=== PATIENT | female | born 1945 ===

== ENCOUNTER 2017-07-09 11:21 | Emergency (ER) | payer MEDICARE ==
--- NOTE | 2017-07-09 15:36 | RAD ---
Indication: Left leg edema. Duplex Doppler sonography of the deep venous system of the left lower extremity deep venous system was performed. Bilaterally the common femoral veins appear patent and compressible. Left proximal greater saphenous vein, proximal deep femoral vein, femoral vein, popliteal vein, posterior tibial veins and peroneal veins appear patent and compressible. Small lymph nodes are noted in the left renal region. IMPRESSION: NO EVIDENCE OF DEEP VENOUS THROMBOSIS IS IDENTIFIED.
[2017-07-09] MEDS ORDERED: Sulfamethox/Trimethoprim DS 800/160* TAB PO ONE (15:45)
[2017-07-09 16:06] VITALS: BP 164/83
--- NOTE | 2017-07-09 18:49 | ED ---
Joshua Alatorre SooYoung, scribed for Danny Frye MD on 07/09/17 at 1445 . Lower Extremity - HPI Summary HPI Summary: A 71 y/o F presents to ED referred by her doctor to r/o DVT. Pt fell approx. one month ago and injured her LLE. She had an XR and there was no fracture. Current sx: L foot swelling. Denies SOB. Pt has a sick mother at home, and wants to get back to her [place]. - History of Current Complaint Chief Complaint: EDSoftTissueLowExtr Stated Complaint: LEFT FOOT PAIN Time Seen by Provider: 07/09/17 13:45 Hx Obtained From: Patient Mechanism Of Injury: Fall From A Standing Position Onset/Duration: Still Present Severity Initially: Moderate Severity Currently: Moderate Pain Intensity: 5 Pain Scale Used: 0-10 Numeric Timing: Constant Location: Is Discrete @ - L foot Associated Signs And Symptoms: Positive: Swelling. Negative: Other - neg: SOB - Allergies/Home Medications Allergies/Adverse Reactions: Allergies Allergy/AdvReac Type Severity Reaction Status Date / Time No Known Allergies Allergy Verified 07/09/17 14:52 PMH/Surg Hx/FS Hx/Imm Hx Previously Healthy: No Endocrine/Hematology History: Reports: Hx Thyroid Disease Psychiatric History: Reports: Hx Anxiety Infectious Disease History: No Infectious Disease History: Denies: Traveled Outside the [place] in Last 30 Days - Social History Occupation: Unemployed - HOMEMAKER Lives: With Family Alcohol Use: None Hx Substance Use: No Substance Use Type: Reports: None Hx Tobacco Use: No Smoking Status (MU): Never Smoked Tobacco Review of Systems Negative: Shortness Of Breath Positive: Edema - L foot All Other Systems Reviewed And Are Negative: Yes Physical Exam - Summary Physical Exam Summary: VITAL SIGNS: Reviewed. GENERAL: Patient is a well-developed and nourished FEMALE who is lying comfortable in the stretcher. Patient is not in any acute respiratory distress. HEAD AND FACE: No signs of trauma. No ecchymosis, hematomas or skull depressions. No sinus tenderness. EYES: PERRLA, EOMI x 2, No injected conjunctiva, no nystagmus. EARS: Hearing grossly intact. Ear canals and tympanic membranes are within normal limits. MOUTH: Oropharynx within normal limits. NECK: Supple, trachea is midline, no adenopathy, no JVD, no carotid bruit, no c- spine tenderness, neck with full ROM. CHEST: Symmetric, no tenderness at palpation LUNGS: Clear to auscultation bilaterally. No wheezing or crackles. CVS: Regular rate and rhythm, S1 and S2 present, no murmurs or gallops appreciated. ABDOMEN: Soft, non-tender. No signs of distention. No rebound, no guarding, and no masses palpated. Bowel sounds are normal. EXTREMITIES: FROM in all major joints, no cyanosis or clubbing. Swelling and erythema to dorsal aspect of L foot. No calf pain. NEURO: Alert and oriented x 3. No acute neurological deficits. Speech is normal and follows commands. SKIN: Dry and warm Triage Information Reviewed: Yes Vital Signs On Initial Exam: Initial Vitals Temp Pulse Resp BP Pulse Ox 97.7 F 72 15 134/62 98 07/09/17 11:29 07/09/17 11:29 07/09/17 11:29 07/09/17 11:29 07/09/17 11:29 Vital Signs Reviewed: Yes Diagnostics - Vital Signs Vital Signs Temp Pulse Resp BP Pulse Ox 07/09/17 14:00 79 159/77 99 07/09/17 13:59 75 98 07/09/17 13:56 154/72 07/09/17 11:29 97.7 F 72 15 134/62 98 - Laboratory Lab Statement: Any lab studies that have been ordered have been reviewed, and results considered in the medical decision making process. - Ultrasound No standard instances Ultrasound Interpretation: No Acute Changes - LOWER EXT VENOUS U/S impression: No evidence of DVT is identified. ED physician has reviewed this radiology report and agrees Ultrasound Interpretation Completed By: Radiologist Lower Extremity Course/Dx - Course Course Of Treatment: A 71 y/o F presents to ED referred by her doctor to r/o DVT. Pt fell approx. one month ago and injured her LLE. She had an XR and there was no fracture. Current sx: L foot swelling. Denies SOB. Pt has a sick mother at home, and wants to get back to her [place]. U/S of LLE is negative for DVT. Pt has erythematous cellulitis. Pt will be placed on Bactrim. D/C home to f/u with PCP. I did not do any blodowork, because pt had nml blodwork with PCP. Hemodynamically stable, A&Ox3. - Diagnoses Differential Diagnosis/HQI/PQRI: Positive: Bursitis, Cellulitis, DVT, Gout, Sprain, Strain Provider Diagnoses: Cellulitis Discharge - Discharge Plan Condition: Stable Disposition: HOME Prescriptions: Sulfamethox/Trimethoprim DS* [Bactrim DS 800/160 TAB*] 1 tab PO BID #10 tab Patient Education Materials: Cellulitis (ED), Sulfamethoxazole/Trimethoprim ( By mouth) Referrals: Mart Thompson MD [Primary Care Provider] - 3 Days Additional Instructions: Follow up with your primary care provider in 3 days. Please return to the ED if you experience new or worsening symptoms. The documentation as recorded by the Joshua connor SooYoung accurately reflects the service I personally performed and the decisions made by , Danny Frye MD.
== END 2017-07-09 16:05 | disposition home or self-care (01) ==
LOC: ED 11:21
DX: L03.90 Cellulitis, unspecified (principal); M79.672 Pain in left foot
CPT/HCPCS: 99283; A9270-GY

== ENCOUNTER 2019-07-31 13:27 | Inpatient (IN) | payer MEDICARE ==
[2019-07-31 14:22] LABS: ABS Basophils 0.1 10^3/ul (0-0.2); ABS Lymphocytes 1.5 10^3/ul (1.0-4.8); ABS Monocytes 0.5 10^3/ul (0-0.8); ABS Neutrophils 9.3 10^3/ul (1.5-7.7); Eosinophil % 0.3 %; Hematocrit 34 % (35-47); Hemoglobin 11.1 g/dL (12.0-16.0); Lymphocyte % 13.2 %; Mean Corpuscular HGB Conc 33 g/dL (31-36); Mean Corpuscular Hemoglobin 27 pg (27-31); Mean Corpuscular Volume 82 fL (80-97); Platelet Count 289 10^3/uL (150-450); Red Blood Count 4.11 10^6 /uL (3.70-4.87); Red Cell Distribution Width 16 % (10-15); White Blood Count 11.4 10^3/uL (3.5-10.8)
--- OUTSIDE RECORDS SUMMARY | 2019-07-31 14:29 | XMS REPORT | Continuity of Care Document ---
:1945 External Reference #:[id number] Author Name Janae Begum NP Address [address] [place] [address] Problems Active Problems Provider Date Hypothyroidism Berta Segovia Onset: 02/10/2015 Malaise and fatigue Mart Thompson M.D. Onset: 01/11/2014 Hyperlipidemia Mart Thompson M.D. Onset: 01/11/2014 Acute maxillary sinusitis Mart Thompson M.D. Onset: 08/11/2012 Anxiety state Mart Thompson M.D. Onset: 02/08/2012 Social History Type Date Description Comments Sex Unknown Tobacco Use Start: Unknown Nonsmoker Tobacco Use Start: Unknown Nonsmoker Smoking Status Reviewed: 06/23/19 Nonsmoker Allergies, Adverse Reactions, Alerts Description No Known Drug Allergies Medications Active Medications SIG Qnty Indications Ordering Provider Date Sharonlisandra Rangel take 1-2 tablets 30caps Z23 Janae Martin 06/23/2019 100mg every 8 hours as Begum, STAFF DEVELOPMENT MANAGER Capsules needed for cough Amoxicillin 1 by mouth three 30tabs J01.90 Janae Martin 06/23/2019 500mg Tablets times a day Begum, STAFF DEVELOPMENT MANAGER Diclofenac Sodium apply to painful 100gm Mart Whitman 04/22/2019 1% Gel area 3 times a Anya Thompson day as needed (joints & muscles) 1 gram, measure with dose card in box Levothyroxine Sodium Take 1 Tablet By 30tabs Mart Ibarra 02/10/2015 Mouth Every Day MD Ada 25mcg Tablets Calcium/Vitamin D 3 po qd Unknown 500/200 Tablets Centrum Silver Ultra 1 po qd Unknown Womens Tablets Asprin 1 po qd Unknown 81mg Claritin 1 by mouth every Unknown 10mg Tablets day History Medications Voltaren apply to painful 100units Mart Thompson, 04/21/2019 - 1% Gel area 3 times a day M.D. 04/22/2019 as needed (joints & muscles) 1 gram, measure with dose card in box Immunizations CPT Code Status Date Vaccine Lot # [id number] Given 07/31/2017 Pneumococcal Conjugate Vacc-13 [id number] Given 07/31/2017 High-Dose, Influenza Virus Vacccine-fluzone 65 and [id number] older 72061 Given 10/09/2014 DO Not Use Split Influenza Virus Vaccine [id number] Given 07/23/2013 DO Not Use Split Influenza Virus Vaccine [id number] 68810 Given 07/28/2008 DO Not Use Split Influenza Virus Vaccine [id number] Given 07/26/2007 DO Not Use Split Influenza Virus Vaccine [id number] Vital Signs Date Vital Result Comment 06/23/2019 2:45pm BP Systolic 140 mmHg BP Diastolic 80 mmHg Heart Rate 80 /min Body Temperature 97.3 F Respiratory Rate 16 /min O2 % BldC Oximetry 95 % room air Height 60 inches 5'0" Weight 182.00 lb BMI (Body Mass Index) 35.5 kg/m2 04/21/2019 9:50am BP Systolic 120 mmHg BP Diastolic 80 mmHg Heart Rate 78 /min Body Temperature 97.9 F Respiratory Rate 16 /min Height 60 inches 5'0" Weight 181.00 lb BMI (Body Mass Index) 35.3 kg/m2 Results Test Date Facility Test Result H/L Range Note Laboratory test 04/21/2019 Nam Wilkerson([facility]) TSH 4.27 mIU/L 0.50-6.00 finding Free T4 1.35 ng/dL 0.75-1.54 Lipid Profile 04/21/2019 Nam Wilkerson([facility]) Cholesterol 202 mg/dL High 120-200 Triglycerides 99 mg/dL 30-200 HDL Cholesterol 71 mg/dL 30-85 LDL (Calculated) 111 CALC 0-129 VLDL Cholesterol 20 mg/dL 0-50 HDL Risk Factor 2.8 CALC 0.0-4.4 Comprehensive Metabolic 04/21/2019 Nam Wilkerson([facility]) Sodium 141 mEq/L 134-149 Prof Potassium 4.2 mEq/L 3.6-5.5 Chloride 100 mEq/L 94-112 Carbon Dioxide 24 mEq/L 21-32 Glucose 99 mg/dL 70-105 BUN 14 mg/dL 6-26 Creatinine 0.7 mg/dL 0.6-1.4 BUN/Creat Ratio 20.0 CALC 8.0-36.0 Calcium 9.1 mg/dL 8.6-10.2 Total Protein 7.2 g/dL 6.4-8.3 Albumin 4.4 g/dL 3.8-5.5 Globulin 2.8 g/dL 2.0-4.8 A/G Ratio 1.6 CALC 0.6-2.3 Alk. Phosphatase 85 U/L 30-110 Alt (SGPT) 21 U/L 7-35 Ast (Sgot) 20 U/L 5-34 Total Bilirubin 0.7 mg/dL 0.2-1.3 GFR Non- >60 ml/min/1.73m^ >=60 GFR >60 ml/min/1.73m^ >=60 CBC Electronic a 04/21/2019 Browning Rhea([facility]) WBC 8.6 x10^3/UL 4.0- 10.0 RBC 4.88 x10^6/UL 3.93-6.00 HGB 13.2 g/dL 12.0-17.0 HCT 41 % 35-50 MCV 84.0 fL 80.0-95.0 MCH 27.0 pg 25.6-32.2 MCHC 32.2 g/dL 32.2-36.0 RDW-CV 15.3 % High 11.6-14.4 PLT 276 x10^3/UL 163-400 MPV 12.3 fL 9.4-12.4 Tasha# 5.37 x10^3/UL 1.56-6.13 Lymph# 2.45 x10^3/UL 1.18-3.74 [place]# 0.62 x10^3/UL 0.24-0.82 Eos # 0.1 x10^3/UL 0.0-0.5 Baso # 0.07 x10^3/UL 0.01-0.08 Tasha% 62.4 % 34.0-70.0 Lymph % 28.5 % 20.0-52.0 [place]% 7.2 % 5.0-12.0 Eos% 1.0 % 0.7-7.0 Baso% 0.8 % 0.1-1.2 Procedures Date Code Description Status 02/05/2008 [id number] Mammogram Completed Medical Devices Description No Information Available Encounters Type Date Location Provider Dx Diagnosis Office Visit 04/21/2019 [facility] Office Mart Whitman E03.9 Hypothyroidism, 9:40a Anya Thompson unspecified E78.5 Hyperlipidemia, unspecified F41.9 Anxiety disorder, unspecified R53.83 Other fatigue Assessments Date Code Description Provider 06/23/2019 Z23 Encounter for immunization Janae Begum NP 06/23/2019 J01.90 Acute sinusitis, unspecified Janae Begum NP 04/21/2019 E03.9 Hypothyroidism, unspecified Mart Thompson M.D. 04/21/2019 E78.5 Hyperlipidemia, unspecified Mart Thompson M.D. 04/21/2019 F41.9 Anxiety disorder, unspecified Mart Thompson M.D. 04/21/2019 R53.83 Other fatigue Mart Thompson M.D. Plan of Treatment 06/23/2019 - Janae Begum, NPZ23 Encounter for immunizationNew Medication: Tessalon Perles 100 mg - take 1-2 tablets every 8 hours as needed for coughFollow up:Nurse visit for pneumovax and flu once she is gnnbxuE65.90 Acute sinusitis, unspecifiedNew Medication:Amoxicillin 500 mg - 1 by mouth three times a dayComments:Call or return if you develop new fever, trouble breathing, sudden worsening, or pain in the ears, face, or chest . While the symptoms of upper respiratory infections are uncomfortable and can take a long time to go away, they rarely present significant danger. Use a humidifier at night and drink plenty of fluids during the day. Ibuprofen or tylenol are good for headaches and sore throats. Other cough and cold remedies, such as guaifenesin or phenylephrine, will not help you get better any faster. They can temporarily help with symptoms, but you should only continue to take them if you actually experience some relief within a couple hours of taking a dose. It is normal to cough for 2-3 weeks. You should be re-evaluated at the office if your cough persists longer or if you have a cough with fever,wheezing, or worsening pain.AllComments:Medication Management Patient Understands medications he 's taking? Yes No Are there Barriers to Adherence? Yes No Has the patient been asked about herbal supplements and therapies, andOTC meds? Yes No Care Plan1. Patient has been queried about patient's goals/ preferences and functional/lifestyle goals at relevant visits. If relevant, describe: na2. Treatment goals as explained to the patient: above3. Are there barriers to meeting treatment goals? Yes No If Yes, please describe:4. Self-Management goals as described to the patient: Yes NoAs always, we strongly encourage a healthy diet and making physical activity a part of your every day life. If you have questions about how or where to start, please contact the office. Functional Status Description No Information Available Mental Status Description No Information Available Referrals Description No Information Available
[2019-07-31 14:34] LABS: Activated Partial Thrombo Time 32.3 seconds (26.0-38.0); INR 0.99 (0.82-1.09)
[2019-07-31 14:41] LABS: Albumin 3.6 g/dL (3.2-5.2); Albumin/Globulin Ratio 1.1 (1-3); BUN/Creatinine Ratio 33.9 (8-20); Calcium 8.8 mg/dL (8.6-10.3); EGFR African American 121.6 (>60); EGFR Non-African American 100.5 (>60); Globulin 3.2 g/dL (2-4); Potassium 3.9 mmol/L (3.5-5.0); Total Bilirubin 0.3 mg/dL (0.2-1.0); Total Protein 6.8 g/dL (6.4-8.9); Troponin I 0.01 ng/mL (<0.04)
[2019-07-31] MEDS ORDERED: Pantoprazole* 80 mg IN NS 80 MG/250 ML BAG IV ONE (15:19)
[2019-07-31] MEDS ORDERED: Pantoprazole IV* 40 MG IV ONE (15:21)
--- NOTE | 2019-07-31 15:33 | ED ---
GI/ HPI - HPI Summary HPI Summary: Patient is a 73 y/o F presenting to [facility] with complaints of josselyn blood from rectum since this morning, 07/31/19. Patient reports having had around 11 episodes of this throughout the day. While the patient was in waiting room, she went to the bathroom and produced a significant amount of blood and as well as a large clot. In ED room, patient states that she has been having epigastric pain since yesterday, 07/30/19. She characterizes this pain as "heartburn" and notes that she took Pepcid yesterday. Dizziness/light-headedness is denied. Last PO intake was this morning, 07/30/19, which included 3 fried eggs and 2 slices of toast. Patient took baby ASA, Claratin, and 2 Tylenols this morning, 07/31/19. PMHx of HLD reported. She denies Hx of internal bleeding. PSHx of appendectomy, cholecystectomy, hysterectomy, and tib/fib surgery. Pt does not report any fever, chills, erythema of eyes, sore throat, CP, SOB, cough, N/V, dysuria, hematuria, myalgia, edema, rash, or dizziness. On triage, pain is rated 0/10. Nothing is noted to aggravate/alleviate Sx. Home medications and allergies are reviewed. - History of Current Complaint Chief Complaint: EDGIBleed Time Seen by Provider: 07/31/19 13:46 Stated Complaint: BLOOD IN STOOL PER PT Hx Obtained From: Patient Onset/Duration: Started Hours Ago, Still Present Timing: Lasting Hours Current Severity: Severe Pain Intensity: 9 Location of Pain: Epigastric Pain Characteristics: Burning - "heartburn" Associated Signs and Symptoms: Positive: Bright Red Blood w/Stool, Abdominal Pain, Other: - does not report any fever, chills, erythema of eyes, sore throat , CP, SOB, cough, N/V, dysuria, hematuria, myalgia, edema, rash, or dizziness. Negative: Dizziness, Nausea, Vomiting, Fever, Hematuria, Dysuria, Chills, Lightheadedness, Cough, Chest Pain Aggravating Factor(s): Nothing Alleviating Factor(s): Nothing - Allergy/Home Medications Allergies/Adverse Reactions: Allergies Allergy/AdvReac Type Severity Reaction Status Date / Time No Known Allergies Allergy Verified 07/31/19 13:32 Home Medications: Home Medications Aspirin EC TAB* [Ecotrin EC Low Dose 81 MG*] 81 mg PO DAILY 07/31/19 [History Confirmed 07/31/19] Famotidine [Pepcid AC] 10 mg PO DAILY PRN 07/31/19 [History Confirmed 07/31/19] Ibuprofen TAB* [Advil TAB*] 200 mg PO Q6H PRN 07/31/19 [History Confirmed ] Levothyroxine TAB* [Synthroid TAB*] 25 mcg PO DAILY 07/31/19 [History Confirmed 07/31/19] Loratadine/Pseudoephedrine [Claritin-D 24 Hour Tablet] 1 each PO DAILY 07/31/19 [History Confirmed 07/31/19] PMH/Surg Hx/FS Hx/Imm Hx Endocrine/Hematology History: Reports: Hx Thyroid Disease Cardiovascular History: Reports: Hx Hypercholesterolemia Psychiatric History: Reports: Hx Anxiety Infectious Disease History: No Infectious Disease History: Denies: Traveled Outside the [place] in Last 30 Days - Family History Known Family History: Negative: Cardiac Disease, Hypertension, Diabetes - Social History Alcohol Use: None Hx Substance Use: No Substance Use Type: Reports: None Hx Tobacco Use: No Smoking Status (MU): Never Smoked Tobacco Review of Systems Negative: Fever, Chills Negative: Drainage Negative: Sore Throat Negative: Chest Pain Negative: Shortness Of Breath, Cough Positive: Abdominal Pain. Negative: Vomiting, Nausea Genitourinary: Other - positive - blood from rectum Negative: dysuria, hematuria Negative: Myalgia, Edema Negative: Rash Neurological: Other - negative - dizziness, light-headedness All Other Systems Reviewed And Are Negative: Yes Physical Exam - Summary Physical Exam Summary: Constitutional: Well-developed, Well-nourished, Alert. (-) Distressed Skin: Warm, Dry HENT: Normocephalic; Atraumatic Eyes: Conjunctiva normal Neck: Musculoskeletal ROM normal neck. (-) JVD, (-) Stridor, (-) Tracheal deviation Cardio: Rhythm regular, rate normal, Heart sounds normal; Intact distal pulses; The pedal pulses are 2+ and symmetric. Radial pulses are 2+ and symmetric. (-) Murmur Pulmonary/Chest wall: Effort normal. (-) Respiratory distress, (-) Wheezes, (-) Rales Abd: Soft, (-) tenderness, (-) Distension, (-) Guarding, (-) Rebound Musculoskeletal: (-) Edema Lymph: (-) Cervical adenopathy Neuro: Alert, Oriented x3 Psych: Mood and affect Normal Triage Information Reviewed: Yes Vital Signs On Initial Exam: Initial Vitals Temp Pulse Resp BP Pulse Ox 98.1 F 103 20 169/90 96 07/31/19 13:29 07/31/19 13:29 07/31/19 13:29 07/31/19 13:29 07/31/19 13:29 Vital Signs Reviewed: Yes Procedures - Sedation Patient Received Moderate/Deep Sedation with Procedure: No Diagnostics - Vital Signs Vital Signs Temp Pulse Resp BP Pulse Ox 07/31/19 14:17 97 21 162/120 96 07/31/19 14:00 90 19 94 07/31/19 13:46 100 170/108 96 07/31/19 13:29 98.1 F 103 20 169/90 96 - Laboratory Lab Results: Lab Results 07/31/19 07/31/19 07/31/19 Range/Units 14:15 14:15 14:15 WBC 11.4 H (3.5-10.8) 10^3/uL RBC 4.11 (3.70-4.87) 10^6 /uL Hgb 11.1 L (12.0-16.0) g/dL Hct 34 L (35-47) % MCV 82 (80-97) fL MCH 27 (27-31) pg MCHC 33 (31-36) g/dL RDW 16 H (10-15) % Plt Count 289 (150-450) 10^3/uL MPV 10.0 (7.4-10.4) fL Neut % (Auto) 81.8 % Lymph % (Auto) 13.2 % [place] % (Auto) 4.0 % Eos % (Auto) 0.3 % Baso % (Auto) 0.7 % Absolute Neuts (auto) 9.3 H (1.5-7.7) 10^3/ul Absolute Lymphs (auto) 1.5 (1.0-4.8) 10^3/ul Absolute Monos (auto) 0.5 (0-0.8) 10^3/ul Absolute Eos (auto) 0.0 (0-0.6) 10^3/ul Absolute Basos (auto) 0.1 (0-0.2) 10^3/ul Absolute Nucleated RBC 0.0 10^3/ul Nucleated RBC % 0.0 INR (Anticoag Therapy) 0.99 (0.82-1.09) APTT 32.3 (26.0-38.0) seconds Sodium 139 (135-145) mmol/L Potassium 3.9 (3.5-5.0) mmol/L Chloride 107 (101-111) mmol/L Carbon Dioxide 25 (22-32) mmol/L Anion Gap 7 (2-11) mmol/L BUN 20 (6-24) mg/dL Creatinine 0.59 (0.51-0.95) mg/dL Est GFR ( Amer) 121.6 (>60) Est GFR (Non-Af Amer) 100.5 (>60) BUN/Creatinine Ratio 33.9 H (8-20) Glucose 125 H (70-100) mg/dL Calcium 8.8 (8.6-10.3) mg/dL Total Bilirubin 0.30 (0.2-1.0) mg/dL AST 16 (13-39) U/L ALT 14 (7-52) U/L Alkaline Phosphatase 70 (34-104) U/L Troponin I 0.01 (<0.04) ng/mL Total Protein 6.8 (6.4-8.9) g/dL Albumin 3.6 (3.2-5.2) g/dL Globulin 3.2 (2-4) g/dL Albumin/Globulin Ratio 1.1 (1-3) Blood Type Antibody Screen 07/31/19 Range/Units 14:15 WBC (3.5-10.8) 10^3/uL RBC (3.70-4.87) 10^6 /uL Hgb (12.0-16.0) g/dL Hct (35-47) % MCV (80-97) fL MCH (27-31) pg MCHC (31-36) g/dL RDW (10-15) % Plt Count (150-450) 10^3/uL MPV (7.4-10.4) fL Neut % (Auto) % Lymph % (Auto) % [place] % (Auto) % Eos % (Auto) % Baso % (Auto) % Absolute Neuts (auto) (1.5-7.7) 10^3/ul Absolute Lymphs (auto) (1.0-4.8) 10^3/ul Absolute Monos (auto) (0-0.8) 10^3/ul Absolute Eos (auto) (0-0.6) 10^3/ul Absolute Basos (auto) (0-0.2) 10^3/ul Absolute Nucleated RBC 10^3/ul Nucleated RBC % INR (Anticoag Therapy) (0.82-1.09) APTT (26.0-38.0) seconds Sodium (135-145) mmol/L Potassium (3.5-5.0) mmol/L Chloride (101-111) mmol/L Carbon Dioxide (22-32) mmol/L Anion Gap (2-11) mmol/L BUN (6-24) mg/dL Creatinine (0.51-0.95) mg/dL Est GFR ( Amer) (>60) Est GFR (Non-Af Amer) (>60) BUN/Creatinine Ratio (8-20) Glucose (70-100) mg/dL Calcium (8.6-10.3) mg/dL Total Bilirubin (0.2-1.0) mg/dL AST (13-39) U/L ALT (7-52) U/L Alkaline Phosphatase (34-104) U/L Troponin I (<0.04) ng/mL Total Protein (6.4-8.9) g/dL Albumin (3.2-5.2) g/dL Globulin (2-4) g/dL Albumin/Globulin Ratio (1-3) Blood Type A Positive Antibody Screen Negative Result Diagrams: 07/31/19 14:15 07/31/19 14:15 Lab Statement: Any lab studies that have been ordered have been reviewed, and results considered in the medical decision making process. - EKG 1840 Cardiac Rate: NL - rate of 98 BPM EKG Rhythm: Sinus Rhythm Summary of EKG Findings: EKG showed NSR with rate of 98 BPM, no STEMI. This EKG was reviewed and interpreted by Dr. Youssef. GIGU Course/Dx - Course Course Of Treatment: Patient is a 73 y/o F presenting to [facility] with complaints of josselyn blood from rectum since this morning, 07/31/19. Patient reports having had around 11 episodes of this throughout the day. While the patient was in waiting room, she went to the bathroom and produced a significant amount of blood and as well as a large clot. In ED room, patient states that she has been having epigastric pain since yesterday, 07/30/19. She characterizes this pain as "heartburn" and notes that she took Pepcid yesterday. Dizziness/light- headedness is denied. EKG showed NSR with rate of 98 BPM, no STEMI. Bloodwork was obtained and WNL with exception of Hgb 11.1, Hct 34, WBC 11.4, absolute neuts 9.3, BUN/creatinine ratio 33.9, glucose 125. During ED course, patient received NS and protonix 80 mg IV. 1534 - Patient's case was discussed with Dr. Robin, Dr. Robin accepts for admission. GI cosult to be obtained. 1536 - Patient's case was discussed with Dr. Dyson, Dr. Dyson wants to do an endoscopy today. Patient was admitted to hospitalist services. - Diagnoses Provider Diagnoses: Rectal bleed, Hypovolemia - Physician Notifications Discussed Care Of Patient With: Calderon Dyson Time Discussed With Above Provider: 15:36 Instructed by Provider To: Other - 1534 - Patient's case was discussed with Dr. Robin, Dr. Robin accepts for admission. GI cosult to be obtained. 1536 - Patient's case was discussed with Dr. Dyson, Dr. Dyson wantgalina to do an endoscopy today. Patient was admitted to hospitalist services. - Critical Care Time Critical Care Time: 30-74 min - 45 minutes CCT Discharge ED - Sign-Out/Discharge Documenting (check all that apply): Patient Departure - admit - Discharge Plan Condition: Stable Disposition: ADMITTED TO [facility] Referrals: Mart Thompson MD [Primary Care Provider] - - Attestation Statements Document Initiated by Scribe: Yes Documenting Scribe: CAHVO DIAS Provider For Whom Scribe is Documenting (Include Credential): CHERI YOUSSEF MD Scribe Attestation: CHAVO Alatorre, scribed for CHERI YOUSSEF MD on 07/31/19 at 1757. Status of Scribe Document: Ready
[2019-07-31] MEDS ORDERED: NS 0.9% 1000 ML** 1,000 ML IV ONE (15:36)
[2019-07-31] MEDS ORDERED: Morphine INJ* 2 MG/ML 1 ML SYRINGE (TWO MG - NEW SYRINGE VERSION) IV PRN (17:20)
[2019-07-31] MEDS ORDERED: Al Hydrox/Mg Hydrox/Simet LIQ* 30 ML UDC PO PRN (17:20)
[2019-07-31] MEDS ORDERED: Ondansetron INJ* 2 MG/ML VIAL IV PRN (17:20)
[2019-07-31] MEDS ORDERED: Midazolam* 1 MG/ML 10 ML VIAL (10 MG) ONE (17:24)
[2019-07-31] MEDS ORDERED: fentaNYL* 50 MCG/ML 2 ML VIAL (100 MCG VIAL) ONE (17:24)
[2019-07-31] MEDS ORDERED: diPHENhydraMINE IV* 50 MG/ML 1 ml VIAL (BENADRYL) ONE (17:24)
[2019-07-31] MEDS ORDERED: NS 0.9% 1000 ML** 1,000 ML IV SCH (17:45)
[2019-07-31] MEDS ORDERED: hydrALAZINE IV* 20 MG/ML VIAL IV SLOW PU PRN (18:13)
--- NOTE | 2019-07-31 18:52 | PN ---
Progress Note - Progress Note Date of Service: 07/31/19 Note: GI Brief EGD/Colon note E: LA-C erosive reflux. No blood. G: Nml D Nml No fresh or old blood Colon to TI: poor prep, lots of old blood and clot. No fresh blood. No blood in TI, indicating likely colonic source Moderate pandiverticulosis, suspect Right sided diverticular bleed- resolving no active bleed at this time. Rec: PPI BID for esophagitis x 3 months. Repeat EGD in 3 months Monitor CBC, appears bleed resolving, no sign of active bleed. Old blood will pass over next 12-24hours Plan repeat colonoscopy in 3 months as today was not sufficient for polyp detection When bleed resolves: high fiber diet, metamucil. ok for clears Calderon Brittonmikayla MADDEN 07/31/19 1900
--- NOTE | 2019-07-31 21:04 | CONS ---
CC: Dr. Mart Thompson CONSULTATION REPORT: DATE OF CONSULT: 07/31/19 REQUESTING PHYSICIAN: Dr. Sarkis Youssef. PRIMARY CARE PHYSICIAN: Dr. Mart Thompson. REASON FOR CONSULTATION: Hematochezia. HISTORY OF PRESENT ILLNESS: This is a very pleasant 73-year-old female with past medical history of hypothyroidism, anxiety, and hyperlipidemia, who presented to the emergency room with bright red bloo d per rectum since this morning on 07/31/19. She states that she has had 10 to 11 movements throughou t the day, bright red blood in nature with some clots. She admits there is some generalized cramping , especially in the epigastric region. She denies any melena. She denies any hemoptysis. She denie s any dysphagia or odynophagia. Denies any weight loss or weight gain. She has been under quite a b it of distress recently taking care of her ill mother. This has never happened to her in the past. She states that she had a colonoscopy many many years ago but cannot recall when. She does take aspi rin. She also admits to meloxicam and ibuprofen usage in addition. Denies any skin rash or lesions. Remainder of the 14-point review of systems is grossly negative. PAST MEDICAL HISTORY: 1. Hypothyroidism. 2. Hyperlipidemia. 3. Anxiety. PAST SURGICAL HISTORY: Colonoscopy, distant. HOME MEDICATIONS: Include: 1. Aspirin. 2. Famotidine. 3. Ibuprofen. 4. Levothyroxine. 5. Loratadine. 6. Pseudoephedrine. FAMILY HISTORY: No family history of GI cancer or inflammatory bowel disease. SOCIAL HISTORY: No tobacco, no alcohol use. REVIEW OF SYSTEMS: Remainder of the 14-point review of systems is grossly negative. PHYSICAL EXAM: Vital Signs: Blood pressure 125/99, pulse is 97, respiratory rate is 19, she is afeb rile, in 96% on room air. In general, alert and oriented x3, no acute distress. HEENT: Atraumatic, normocephalic. Pupils equal, round, reactive to light. Extraocular movements are intact. Conjunct ivae are pink. Sclerae anicteric. Cardiovascular: Regular rate and rhythm. S1, S2. Respiratory: Clear to auscultation bilaterally. Abdomen: Soft, mild tenderness in the epigastrium. Bowel sounds positive. No guarding or rebound. No shifting dullness. Extremities: No clubbing, no cyanosis or edema. Psych: Appropriate mood and affect. DIAGNOSTIC STUDIES/LAB DATA: Hemoglobin 11.1. INR 0.99. BUN is 20, creatinine is 0.59. Glucose is 125. AST is 16, ALT is 14. Platelet count is 289. ASSESSMENT AND PLAN: This is a 73-year-old female with rectal bleeding and and acute blood loss anem ia. Acute blood loss anemia. H and H's q.6. Agree with IV pantoprazole drip. She does not have risk fa ctors for cirrhosis and octreotide not necessary at this time. She has consumed a significant amount of ibuprofen along with aspirin. This potentially places her at risk for peptic ulcer disease. I di scussed the risks, benefits, and alternatives and will proceed with upper endoscopy today. She is he modynamically stable; however, slightly tachycardic. Her BUN is not elevated but given the tachycard ia, suspect upper GI source is the possibility. If no source is identified, we discussed doing a fle xible sigmoidoscopy to colonoscopy pending results today unprepped. We discussed the risks, benefits , and alternatives to this and she agreed to proceed. We will keep the patient n.p.o., IV fluids, H and Hs every 6 hours, and type and cross. She can be transfused as needed for hemoglobin less than 7 per the hospitalist service. [id number]/[facility] #: [id number]
[2019-08-01 01:18] LABS: Hematocrit 26 % (35-47); Hemoglobin 8.4 g/dL (12.0-16.0)
--- NOTE | 2019-08-01 02:22 | HP ---
CC: Dr. Thompson * ADMISSION HISTORY AND PHYSICAL: DATE OF ADMISSION: 07/31/19 ATTENDING PHYSICIAN WHILE IN THE HOSPITAL: Dr. Consuelo Viera * (dictated by DOUGLAS Herzog). PRIMARY CARE PROVIDER: Dr. Thompson. CONSULTING FIREWORKS ASSEMBLER: Calderon Dyson DO CHIEF COMPLAINT: Bright red blood per rectum x2 episodes. HISTORY OF PRESENT ILLNESS: Rona Grier is a 73-year-old white female with past medical history significant for diverticulosis, hypothyroidism, and acid reflux, who presents to the emergency department today complaining of bright red blood per rectum. The patient awoke this morning and went to have a bowel movement. She reports that there was a small black stool and lots of blood in the toilet. She states that there were multiple times while she was on the toilet that she felt she was passing a bowel movement but she was only passing blood with small clots. Since this episode, she has been feeling lower abdominal pain, which has now moved into her upper abdomen. She is no longer feeling lower abdominal pain. She is also feeling sensation of dyspepsia and bloating. She did not have abdominal pain, nausea, vomiting leading up to this episode, however, she did feel that she had some dyspepsia last night. She tells me she repeatedly has dyspepsia in the evening because she eats dinner late at night and then lies down and usually this is resolved with famotidine. At the time of my exam, her upper abdominal pain is 4 to 5/10 on the pain scale and she is complaining of some nausea. She denies vomiting, episodes of hematochezia or melena leading up to today, fever, chills, dizziness, lightheadedness, chest pain or shortness of breath. The patient additionally had an observed bowel movement in the emergency department. Dr. Youssef did see this bowel movement and reported large volume of bright red blood with small clots. He was unable to quantify the volume as it was in the toilet bowl, however, there was some on the toilet seat as well. ED COURSE: When the patient arrived to the emergency department, she had a temperature of 98.1 degrees Fahrenheit, pulse of 103, respiratory rate 20, oxygen saturation 96% on room air, blood pressure 169/90. She was given IV Protonix 80 mg and a liter of normal saline in the emergency department. Due to her presentation, the patient hospitalists were asked to evaluate the patient for admission. PAST MEDICAL HISTORY: 1. Diverticulosis, on prior colonoscopy. 2. Previous history of herniated disk in L2-L3 with residual chronic back pain. 3. Hypothyroidism. 4. Depression/anxiety. 5. Frequent acid reflux. 6. Prior history of sciatica, which has now resolved. PAST SURGICAL HISTORY: 1. Cholecystectomy. 2. Hysterectomy. 3. Appendectomy. HOME MEDICATIONS: 1. Famotidine 10 mg p.o. daily p.r.n. heartburn. 2. Ibuprofen 200 mg p.o. q.6 hours p.r.n. pain. 3. Aspirin 81 mg p.o. daily. 4. Claritin D 1 tab p.o. daily. 5. Synthroid 25 mcg p.o. daily. ALLERGIES: No known drug allergies. FAMILY HISTORY: Mother is living, age 94, dementia. Father at age 79 due to unknown causes. He did have history of diabetes. SOCIAL HISTORY: The patient is a [place] woman, who lives with her . 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 She denies smoking or prior history of smoking. Denies illicit drug use. She endorses drinking either beer or wine approximately 3 times per week or less and usually will drink 2 alcoholic beverages with occasion. The patient would like her son , Orlando Grier, to be her surrogate medical decision maker should she need one. His phone number is [phone]. REVIEW OF SYSTEMS: An 11-point review of systems was completed, all pertinent positives are above in the HPI. All other systems are negative. PHYSICAL EXAMINATION GENERAL: Obese elderly white female, lying upright in emergency department bed , appearing comfortable and in no acute distress. HEENT: Eyes: PERRLA. Sclerae anicteric. ENT: Mucous membranes are moist. LUNGS: Clear to auscultation throughout. CARDIO: Regular rate and rhythm without murmurs, rubs, or gallops. ABDOMEN: Normoactive bowel sounds x4 quadrants. Abdomen is soft, nondistended. There is minimal tenderness to palpation at the epigastric region. A limited rectal exam was performed. There were no external hemorrhoids observed and no internal hemorrhoids were appreciated on palpation, and there was blood in the vault. EXTREMITIES: No cyanosis, clubbing, or edema. NEUROLOGIC: The patient is alert and oriented x3. No focal deficits. Strength is 5/5 in all extremities. No tremors. DIAGNOSTIC STUDIES/LAB DATA: EK beats per minute, normal sinus rhythm. No ST depressions or elevations. White blood cell count 11.4, hemoglobin 11.1, hematocrit 34, platelet count 289. INR 0.99. PTT 32.3. Sodium 139, potassium 3.9, chloride 107, carbon dioxide 25, anion gap 7, BUN 20, creatinine 0.59, glucose 125. LFTs are unremarkable. ASSESSMENT AND PLAN: Rona Grier is a 73-year-old female with past medical history significant for diverticulosis, hypothyroidism, occasional acid reflux, and depression and anxiety, who presents to the emergency department for bright red blood per rectum. The patient will be admitted inpatient for: 1. Gastrointestinal bleed. The patient has had multiple episodes of bright red blood per rectum today. Given that patient has history of diverticulosis, it is possible that this is diverticular bleed; however, upper GI bleed remains in the differential. At this point, diverticular bleed seems more likely and I will not continue Protonix at this time, but I will continue IV fluids as the patient was minimally tachycardic when she arrived and has lost significant blood volume. I will repeat H and H every [address] Calderon Dyson of the gastroenterology service has been consulted and has evaluated the patient. He will be taking her for endoscopy with potential flexible sigmoidoscopy today. I will be holding the patient's aspirin and she will be n.p.o. for this procedure. I will order an iron panel for tomorrow morning. 2. Hypertension. The patient was minimally hypertensive, systolic blood pressure to 170 in the emergency department. We will continue to monitor this. The patient does not take hypertensive medication at home. I will order p.r.n. hydralazine for systolic blood pressure over 180. 3. Hypothyroidism. I will continue patient's home Synthroid, however, given that she is n.p.o. at this point, I will order for IV tomorrow and we can change it to p.o. pending the findings of the gastroenterology service. 4. FEN. Electrolytes within normal limits. Continuous normal saline 100 cc per hour has been ordered and diet n.p.o. 5. DVT prophylaxis. The patient has a DVT risk score of 2, however, in the setting of GI bleed, chemoprophylaxis is contraindicated. I have ordered SCDs. 6. Code status: The patient is full code. TIME SPENT: Approximately 45 minutes was spent on this admission, approximately half this time was spent at bedside evaluating the patient and discussing plan of care. This case has been reviewed with my attending, Dr. Consuelo Viera, and she agrees with this plan of care. DOUGLAS HERZOG [id number]/[facility] #: [id number] CHIKIS
[2019-08-01] MEDS: Levothyroxine TAB* 25 MCG TAB PO SCH (06:00)
[2019-08-01 07:08] LABS: ABS Basophils 0.1 10^3/ul (0-0.2); ABS Eosinophils 0.2 10^3/ul (0-0.6); ABS Lymphocytes 3.2 10^3/ul (1.0-4.8); ABS Monocytes 0.6 10^3/ul (0-0.8); ABS Neutrophils 5.1 10^3/ul (1.5-7.7); Eosinophil % 2.5 %; Hematocrit 26 % (35-47); Hemoglobin 8.7 g/dL (12.0-16.0); Lymphocyte % 34.8 %; Mean Corpuscular HGB Conc 34 g/dL (31-36); Mean Corpuscular Hemoglobin 28 pg (27-31); Mean Corpuscular Volume 83 fL (80-97); Mean Platelet Volume 10.2 fL (7.4-10.4); Platelet Count 227 10^3/uL (150-450); Red Blood Count 3.12 10^6 /uL (3.70-4.87); Red Cell Distribution Width 16 % (10-15); White Blood Count 9.3 10^3/uL (3.5-10.8)
[2019-08-01 07:15] LABS: INR 1.06 (0.82-1.09)
[2019-08-01 07:23] LABS: Anion Gap 5 mmol/L (2-11); BUN/Creatinine Ratio 23.5 (8-20); Blood Urea Nitrogen 12 mg/dL (6-24); CO2 Carbon Dioxide 25 mmol/L (22-32); Calcium 7.6 mg/dL (8.6-10.3); Chloride 111 mmol/L (101-111); EGFR African American 143.8 (>60); EGFR Non-African American 118.9 (>60); Glucose 95 mg/dL (70-100); Potassium 3.8 mmol/L (3.5-5.0); Sodium 141 mmol/L (135-145)
[2019-08-01 07:24] LABS: % Iron Saturation 24 % (15-55); Iron 78 ug/dL (50-212); Total Iron Binding Capacity 319 mcg/dL (250-450); Transferrin 228 mg/dL (203-362)
[2019-08-01 07:41] LABS: Ferritin 39.5 ng/mL (11-307)
[2019-08-01] MEDS ORDERED: Influenza VAC *QUAD* 2019-20* 0.5 ML SYRINGE IM ONE (09:00)
[2019-08-01] MEDS ORDERED: LORATADINE PO SCH (09:00)
[2019-08-01] MEDS ORDERED: PSEUDOEPHEDRINE PO SCH (09:00)
[2019-08-01] MEDS ORDERED: oxyCODONE TAB* 5 MG TAB PO PRN (10:25)
[2019-08-01] MEDS ORDERED: Acetaminophen TAB* 325 MG PO PRN (10:25)
[2019-08-01] MEDS: Pantoprazole TAB * 40 MG TAB PO SCH ×2 (10:28→20:49)
--- NOTE | 2019-08-01 10:32 | PN ---
Subjective Date of Service: 08/01/19 Interval History: Patient states her epigastric pain feels similar to acid reflux, and feels it is improved from yesterday but still present. Additional states she feels mild nausea at this time. She did not feel worse after eating broth and jello for breakfast. Denies vomiting, fever/chills, chest pain. She had a BM in senior talent management consultant on overnight shift, however it was unfortunately not explained in notes or signout if josselyn blood vs dark, clotted blood was witnessed. Blood was noted. The patient remembers this BM but did not look at the BM afterwards. Objective Active Medications: Acetaminophen (Tylenol Tab*) 650 mg PO Q6H PRN PRN Reason: PAIN - MILD Al Hydrox/Mg Hydrox/Simethicone (Maalox Plus*) 30 ml PO Q6H PRN PRN Reason: INDIGESTION Hydralazine HCl (Apresoline Iv*) 5 mg IV SLOW PU Q6H PRN PRN Reason: blood pressure Levothyroxine Sodium (Synthroid Tab*) 25 mcg PO DAILY@0600 [facility] Last Admin: 08/01/19 06:00 Dose: 25 mcg Non-Formulary Medication (Loratadine/Pseudoephedrine [Claritin-D 24 Hour Tablet] ) 1 each PO DAILY [facility] Ondansetron HCl (Zofran Inj*) 4 mg IV Q4H PRN PRN Reason: NAUSEA/VOMITING Oxycodone HCl (Roxycodone Tab*) 5 mg PO Q6H PRN PRN Reason: PAIN - SEVERE Pantoprazole Sodium (Protonix Tab*) 40 mg PO BID [facility] Vital Signs - 8 hr 08/01/19 08/01/19 08/01/19 03:23 07:15 08:15 Temperature 97.4 F 97.4 F Pulse Rate 65 68 Respiratory 18 18 18 Rate Blood Pressure 120/49 118/52 (mmHg) O2 Sat by Pulse 100 99 Oximetry Oxygen Devices in Use Now: None Appearance: Obese, elderly white female, laying upright in hospital bed, appearing in NAD; quite pleasant Eyes: No Scleral Icterus, - - PERRL Ears/Nose/Mouth/Throat: Mucous Membranes Moist Neck: NL Appearance and Movements; NL JVP Respiratory: Symmetrical Chest Expansion and Respiratory Effort, Clear to Auscultation Cardiovascular: NL Sounds; No Murmurs; No JVD, RRR Abdominal: NL Sounds; No Tenderness; No Distention, - - no tenderness to epigastric region Extremities: No Edema, No Clubbing, Cyanosis, - - no calf tenderness Skin: No Rash or Ulcers Neurological: Alert and Oriented x 3, NL Muscle Strength and Tone Result Diagrams: 08/01/19 06:40 08/01/19 06:40 Additional Lab and Data: Lab Results 07/31/19 07/31/19 07/31/19 Range/Units 14:15 14:15 14:15 WBC 11.4 H (3.5-10.8) 10^3/uL RBC 4.11 (3.70-4.87) 10^6 /uL Hgb 11.1 L (12.0-16.0) g/dL Hct 34 L (35-47) % MCV 82 (80-97) fL MCH 27 (27-31) pg MCHC 33 (31-36) g/dL RDW 16 H (10-15) % Plt Count 289 (150-450) 10^3/uL MPV 10.0 (7.4-10.4) fL Neut % (Auto) 81.8 % Lymph % (Auto) 13.2 % [place] % (Auto) 4.0 % Eos % (Auto) 0.3 % Baso % (Auto) 0.7 % Absolute Neuts (auto) 9.3 H (1.5-7.7) 10^3/ul Absolute Lymphs (auto) 1.5 (1.0-4.8) 10^3/ul Absolute Monos (auto) 0.5 (0-0.8) 10^3/ul Absolute Eos (auto) 0.0 (0-0.6) 10^3/ul Absolute Basos (auto) 0.1 (0-0.2) 10^3/ul Absolute Nucleated RBC 0.0 10^3/ul Nucleated RBC % 0.0 INR (Anticoag Therapy) 0.99 (0.82-1.09) APTT 32.3 (26.0-38.0) seconds Sodium 139 (135-145) mmol/L Potassium 3.9 (3.5-5.0) mmol/L Chloride 107 (101-111) mmol/L Carbon Dioxide 25 (22-32) mmol/L Anion Gap 7 (2-11) mmol/L BUN 20 (6-24) mg/dL Creatinine 0.59 (0.51-0.95) mg/dL Est GFR ( Amer) 121.6 (>60) Est GFR (Non-Af Amer) 100.5 (>60) BUN/Creatinine Ratio 33.9 H (8-20) Glucose 125 H (70-100) mg/dL Calcium 8.8 (8.6-10.3) mg/dL Total Bilirubin 0.30 (0.2-1.0) mg/dL AST 16 (13-39) U/L ALT 14 (7-52) U/L Alkaline Phosphatase 70 (34-104) U/L Troponin I 0.01 (<0.04) ng/mL Total Protein 6.8 (6.4-8.9) g/dL Albumin 3.6 (3.2-5.2) g/dL Globulin 3.2 (2-4) g/dL Albumin/Globulin Ratio 1.1 (1-3) Blood Type Antibody Screen 07/31/19 Range/Units 14:15 WBC (3.5-10.8) 10^3/uL RBC (3.70-4.87) 10^6 /uL Hgb (12.0-16.0) g/dL Hct (35-47) % MCV (80-97) fL MCH (27-31) pg MCHC (31-36) g/dL RDW (10-15) % Plt Count (150-450) 10^3/uL MPV (7.4-10.4) fL Neut % (Auto) % Lymph % (Auto) % [place] % (Auto) % Eos % (Auto) % Baso % (Auto) % Absolute Neuts (auto) (1.5-7.7) 10^3/ul Absolute Lymphs (auto) (1.0-4.8) 10^3/ul Absolute Monos (auto) (0-0.8) 10^3/ul Absolute Eos (auto) (0-0.6) 10^3/ul Absolute Basos (auto) (0-0.2) 10^3/ul Absolute Nucleated RBC 10^3/ul Nucleated RBC % INR (Anticoag Therapy) (0.82-1.09) APTT (26.0-38.0) seconds Sodium (135-145) mmol/L Potassium (3.5-5.0) mmol/L Chloride (101-111) mmol/L Carbon Dioxide (22-32) mmol/L Anion Gap (2-11) mmol/L BUN (6-24) mg/dL Creatinine (0.51-0.95) mg/dL Est GFR ( Amer) (>60) Est GFR (Non-Af Amer) (>60) BUN/Creatinine Ratio (8-20) Glucose (70-100) mg/dL Calcium (8.6-10.3) mg/dL Total Bilirubin (0.2-1.0) mg/dL AST (13-39) U/L ALT (7-52) U/L Alkaline Phosphatase (34-104) U/L Troponin I (<0.04) ng/mL Total Protein (6.4-8.9) g/dL Albumin (3.2-5.2) g/dL Globulin (2-4) g/dL Albumin/Globulin Ratio (1-3) Blood Type A Positive Antibody Screen Negative Assess/Plan/Problems-Billing Assessment: 73 yo white female with PMHx diverticulosis, chronic low back pain, hypothyroidism presents with bright red blood per rectum x2-3 episodes. - Patient Problems (1) GI bleed Current Visit: Yes Status: Acute Code(s): K92.2 - GASTROINTESTINAL HEMORRHAGE, UNSPECIFIED SNOMED Code(s): 19566191 Comment: -presented with BRBPR x2-3 episodes with josselyn blood and clots witnessed in ED -EGD without evidence of UGIB. Old blood found on colonoscopy, though there was much stool as there was no bowel prep -likely diverticular bleed considering hx diverticulosis, no josselyn blood on c- scope -continue H&H q6hr. Currently stable but would like to monitor further BMs today. More blood in BM early this morning but unfortunately unclear whether blood was old/clotted or josselyn/fresh -continue clear liquid diet in event more josselyn BRBPR (2) Anemia Current Visit: Yes Status: Acute Code(s): D64.9 - ANEMIA, UNSPECIFIED SNOMED Code(s): 466762178 Comment: -acute blood loss anemia 2/2 GIB -monitoring H&H q6h -H&H currently stable (3) Esophagitis Current Visit: Yes Status: Acute Code(s): K20.9 - ESOPHAGITIS, UNSPECIFIED SNOMED Code(s): 22323974 Comment: -found on EGD 07/31/[address] Dyson who recommended BID PPI and f/u EGD in 3 months -started protonix 40mg BID -likely contributing to this continuios dyspepsia patient describes -will order prn famotidine as well in interim (4) Hypothyroidism Current Visit: Yes Status: Acute Code(s): E03.9 - HYPOTHYROIDISM, UNSPECIFIED SNOMED Code(s): 75975806 Comment: -continue home synthroid (5) DVT prophylaxis Current Visit: Yes Status: Acute Code(s): Z29.9 - ENCOUNTER FOR PROPHYLACTIC MEASURES, UNSPECIFIED SNOMED Code(s): 961870471 Comment: -SCDs in setting of GIB (6) Full code status Current Visit: Yes Status: Acute Code(s): Z78.9 - OTHER SPECIFIED HEALTH STATUS SNOMED Code(s): 297430999
[2019-08-01] MEDS ORDERED: Famotidine TAB* 20 MG PO PRN (10:35)
[2019-08-01 11:59] LABS: Hematocrit 25 % (35-47); Hemoglobin 8.2 g/dL (12.0-16.0)
[2019-08-01 18:39] LABS: Hematocrit 27 % (35-47); Hemoglobin 8.6 g/dL (12.0-16.0)
--- NOTE | 2019-08-01 21:39 | PRO ---
CC: Mart Thompson MD * EGD AND COLONOSCOPY REPORT: DATE OF PROCEDURE: 07/31/19 PROCEDURES PERFORMED: Complete esophagogastroduodenoscopy and complete colonoscopy to the terminal ileum. INDICATION FOR PROCEDURE: Acute blood loss anemia. MEDICATIONS GIVEN: Include 10 mg IV midazolam, 75 mcg IV fentanyl. DESCRIPTION OF PROCEDURE: After the EGD and flexible sigmoidoscopy and colonoscopy procedure were explained to the patient, written informed consent was obtained. IV medication was given and a bite block was placed between the teeth. The adult Olympus gastroscope was then inserted into the patient's oropharynx into the tubular esophagus. The tubular esophagus revealed LA-C erosive reflux with ulceration. No fresh or old blood was visualized. No stenosis. The scope was then advanced through the lower esophageal sphincter into the stomach. Direct views were normal. On retroflexion, the views were normal as well. The scope was then advanced through the widely patent pylorus into the duodenal bulb, C-loop, distal duodenum. These were normal in appearance. No fresh or old blood was visualized on the entire exam. The scope was then removed from the patient. She was then rotated, given additional IV sedation medication. Rectal exam was performed. The rectal exam was unremarkable. The adult Olympus gastroscope was then inserted into the patient's rectum and advanced very carefully initially to the transverse colon, however, old blood was visualized further down. The procedure was then converted to a colonoscopy given the potential for bleeding. I was able to reach the cecum with the adult Olympus gastroscope. I was then able to intubate the terminal ileum for about 5 to 6 cm. No blood was visualized within the terminal ileum indicating a likely colonic source. The scope was then returned to the cecum. Lots of old blood and clot was visualized. This was extensively washed. The views were still limited; however, no fresh bleeding was noted. I then carefully withdrew over the next 15 minutes, washing the mucosa. No evidence of fresh blood was noted, but definitely extensive old blood and diverticulosis throughout. The concentration of old blood was greatest on the right. The scope was then returned to the rectum. Direct views were normal. On retroflexion, the views were normal as well as the scope was then removed from the patient. She tolerated the procedure well. She returned to the recovery room in stable condition. IMPRESSION: 1. Complete esophagogastroduodenoscopy. 2. LA-C erosive reflux. 3. No fresh or old blood on upper exam. 4. Complete colonoscopy to the terminal ileum. 5. Poor prep, but decent visualization done after washing. 6. Extensive old blood and clot. No fresh bleeding. 7. Zuleta-diverticulosis coli. 8. No blood in terminal ileum. RECOMMENDATIONS: Suspect this is a resolved diverticular bleed from the right side. We will continue to observe, expect clots and old blood to continue to come out for about the next 12 to 24 hours. She can have full liquids today. She needs to be on b.i.d. PPI therapy given the erosive reflux noted on top. She will then need a repeat EGD and colonoscopy in 3 months' time to evaluate her esophagus for healing and then also to make sure there is no polyps or lesions that may have been missed on the colonoscopy today given the poor prep and old blood. She should be discharged on a high fiber diet after the bleeding ceases to help to prevent recurrence. She should avoid Motrin, ibuprofen, and Aleve and then in addition likely she should be on Metamucil on a daily basis to help empty her diverticular pockets. [id number]/[facility] #: [id number] CHIKIS
[2019-08-02 01:18] LABS: Hematocrit 25 % (35-47)
[2019-08-02 05:34] LABS: Hematocrit 26 % (35-47); Hemoglobin 8.8 g/dL (12.0-16.0)
[2019-08-02] MEDS: Levothyroxine TAB* 25 MCG TAB PO SCH (06:30)
[2019-08-02] MEDS: Cetirizine* 10 MG TAB PO SCH (09:25)
[2019-08-02] MEDS: Pantoprazole TAB * 40 MG TAB PO SCH ×2 (09:25→22:17)
[2019-08-02] MEDS: Pseudoephedrine HCL ER TAB* 120 MG PO SCH ×2 (09:25→22:18)
--- NOTE | 2019-08-02 09:31 | PN ---
Subjective Date of Service: 08/02/19 Interval History: Ms. Grier states that her epigastric pain is improved, but notes she has a "very tiny amount of pain;" she denies pain elsewhere. She states that she feels bloated. She had a BM today, and denies melena, hematochezia. She denies nausea, vomiting, dizziness, lightheadedness. She is tolerating clear liquid diet without any difficulty and feels ready to advance diet. Objective Active Medications: Acetaminophen (Tylenol Tab*) 650 mg PO Q6H PRN PRN Reason: PAIN - MILD Al Hydrox/Mg Hydrox/Simethicone (Maalox Plus*) 30 ml PO Q6H PRN PRN Reason: INDIGESTION Cetirizine HCl (Zyrtec*) 10 mg PO DAILY [facility] Last Admin: 08/02/19 09:25 Dose: 10 mg Famotidine (Pepcid Tab*) 20 mg PO DAILY PRN PRN Reason: DYSPEPSIA Hydralazine HCl (Apresoline Iv*) 5 mg IV SLOW PU Q6H PRN PRN Reason: blood pressure Levothyroxine Sodium (Synthroid Tab*) 25 mcg PO DAILY@0600 [facility] Last Admin: 08/02/19 06:30 Dose: 25 mcg Ondansetron HCl (Zofran Inj*) 4 mg IV Q4H PRN PRN Reason: NAUSEA/VOMITING Oxycodone HCl (Roxycodone Tab*) 5 mg PO Q6H PRN PRN Reason: PAIN - SEVERE Pantoprazole Sodium (Protonix Tab*) 40 mg PO BID [facility] Last Admin: 08/02/19 09:25 Dose: 40 mg Pseudoephedrine HCl (Sudafed 12 Hour*) 120 mg PO BID [facility] Last Admin: 08/02/19 09:25 Dose: 120 mg Vital Signs: Temp Pulse Resp BP Pulse Ox 97.7 F 68 22 143/64 96 08/02/19 07:20 08/02/19 07:20 08/02/19 07:20 08/02/19 07:20 08/02/19 07:20 Oxygen Devices in Use Now: None Appearance: Ms. Grier is an obese pleasant older woman who is sitting up in her chair; she appears to be in no acute distress. Eyes: No Scleral Icterus, PERRLA Ears/Nose/Mouth/Throat: NL Teeth, Lips, Gums, Clear Oropharnyx, Mucous Membranes Moist Neck: NL Appearance and Movements; NL JVP, Trachea Midline Respiratory: Symmetrical Chest Expansion and Respiratory Effort, Clear to Auscultation Cardiovascular: NL Sounds; No Murmurs; No JVD, RRR, No Edema Abdominal: - - Does not appear distended. Hypoactive bowel sounds. Mild tenderness to palpation in epigastric region; non-tender elsewhere. Extremities: No Edema, No Clubbing, Cyanosis Neurological: Alert and Oriented x 3 Result Diagrams: 08/02/19 05:22 08/01/19 06:40 Additional Lab and Data: Lab Results 07/31/19 07/31/19 07/31/19 Range/Units 14:15 14:15 14:15 WBC 11.4 H (3.5-10.8) 10^3/uL RBC 4.11 (3.70-4.87) 10^6 /uL Hgb 11.1 L (12.0-16.0) g/dL Hct 34 L (35-47) % MCV 82 (80-97) fL MCH 27 (27-31) pg MCHC 33 (31-36) g/dL RDW 16 H (10-15) % Plt Count 289 (150-450) 10^3/uL MPV 10.0 (7.4-10.4) fL Neut % (Auto) 81.8 % Lymph % (Auto) 13.2 % [place] % (Auto) 4.0 % Eos % (Auto) 0.3 % Baso % (Auto) 0.7 % Absolute Neuts (auto) 9.3 H (1.5-7.7) 10^3/ul Absolute Lymphs (auto) 1.5 (1.0-4.8) 10^3/ul Absolute Monos (auto) 0.5 (0-0.8) 10^3/ul Absolute Eos (auto) 0.0 (0-0.6) 10^3/ul Absolute Basos (auto) 0.1 (0-0.2) 10^3/ul Absolute Nucleated RBC 0.0 10^3/ul Nucleated RBC % 0.0 INR (Anticoag Therapy) 0.99 (0.82-1.09) APTT 32.3 (26.0-38.0) seconds Sodium 139 (135-145) mmol/L Potassium 3.9 (3.5-5.0) mmol/L Chloride 107 (101-111) mmol/L Carbon Dioxide 25 (22-32) mmol/L Anion Gap 7 (2-11) mmol/L BUN 20 (6-24) mg/dL Creatinine 0.59 (0.51-0.95) mg/dL Est GFR ( Amer) 121.6 (>60) Est GFR (Non-Af Amer) 100.5 (>60) BUN/Creatinine Ratio 33.9 H (8-20) Glucose 125 H (70-100) mg/dL Calcium 8.8 (8.6-10.3) mg/dL Total Bilirubin 0.30 (0.2-1.0) mg/dL AST 16 (13-39) U/L ALT 14 (7-52) U/L Alkaline Phosphatase 70 (34-104) U/L Troponin I 0.01 (<0.04) ng/mL Total Protein 6.8 (6.4-8.9) g/dL Albumin 3.6 (3.2-5.2) g/dL Globulin 3.2 (2-4) g/dL Albumin/Globulin Ratio 1.1 (1-3) Blood Type Antibody Screen 07/31/19 Range/Units 14:15 WBC (3.5-10.8) 10^3/uL RBC (3.70-4.87) 10^6 /uL Hgb (12.0-16.0) g/dL Hct (35-47) % MCV (80-97) fL MCH (27-31) pg MCHC (31-36) g/dL RDW (10-15) % Plt Count (150-450) 10^3/uL MPV (7.4-10.4) fL Neut % (Auto) % Lymph % (Auto) % [place] % (Auto) % Eos % (Auto) % Baso % (Auto) % Absolute Neuts (auto) (1.5-7.7) 10^3/ul Absolute Lymphs (auto) (1.0-4.8) 10^3/ul Absolute Monos (auto) (0-0.8) 10^3/ul Absolute Eos (auto) (0-0.6) 10^3/ul Absolute Basos (auto) (0-0.2) 10^3/ul Absolute Nucleated RBC 10^3/ul Nucleated RBC % INR (Anticoag Therapy) (0.82-1.09) APTT (26.0-38.0) seconds Sodium (135-145) mmol/L Potassium (3.5-5.0) mmol/L Chloride (101-111) mmol/L Carbon Dioxide (22-32) mmol/L Anion Gap (2-11) mmol/L BUN (6-24) mg/dL Creatinine (0.51-0.95) mg/dL Est GFR ( Amer) (>60) Est GFR (Non-Af Amer) (>60) BUN/Creatinine Ratio (8-20) Glucose (70-100) mg/dL Calcium (8.6-10.3) mg/dL Total Bilirubin (0.2-1.0) mg/dL AST (13-39) U/L ALT (7-52) U/L Alkaline Phosphatase (34-104) U/L Troponin I (<0.04) ng/mL Total Protein (6.4-8.9) g/dL Albumin (3.2-5.2) g/dL Globulin (2-4) g/dL Albumin/Globulin Ratio (1-3) Blood Type A Positive Antibody Screen Negative Microbiology and Other Data: Microbiology 07/31/19 14:58 Aerobic Blood Culture - Preliminary Blood Venous No Growth Day 1 Anaerobic Blood Culture - Preliminary No Growth Day 1 07/31/19 14:58 Aerobic Blood Culture - Preliminary Blood Venous No Growth Day 1 Anaerobic Blood Culture - Preliminary No Growth Day 1 Assess/Plan/Problems-Billing Assessment: 73 yo white female with PMHx diverticulosis, chronic low back pain, hypothyroidism presents with bright red blood per rectum x2-3 episodes. - Patient Problems (1) GI bleed Comment: -presented with BRBPR x2-3 episodes with josselyn blood and clots witnessed in ED -EGD without evidence of UGIB. Old blood found on colonoscopy, though there was much stool as there was no bowel prep -likely diverticular bleed considering hx diverticulosis; no josselyn blood on c- scope -h/h stable; BM without melena, hematochezia, clots -advance diet -plan for outpatient follow up with GI for repeat EGD, colonoscopy in 3 months (2) Anemia Comment: -acute blood loss anemia 2/2 GIB -h/h stable and increasing -monitor h/h daily (3) Esophagitis Comment: -found on EGD 07/31/[address] Dyson who recommended BID PPI and f/u EGD in 3 months -started protonix 40mg BID -likely contributing to this continuios dyspepsia patient describes; pt reports improvement in symptoms -will order prn famotidine as well in interim (4) Hypothyroidism Comment: -continue home synthroid (5) DVT prophylaxis Comment: -SCDs in setting of GIB (6) Full code status Status and Disposition: Inpatient. Discharge to home likely in a.m.
[2019-08-03 06:24] LABS: Hematocrit 24 % (35-47)
[2019-08-03] MEDS: Levothyroxine TAB* 25 MCG TAB PO SCH (06:33)
[2019-08-03] MEDS: Pantoprazole TAB * 40 MG TAB PO SCH (08:51)
[2019-08-03] MEDS: Pseudoephedrine HCL ER TAB* 120 MG PO SCH (08:51)
[2019-08-03] MEDS: Cetirizine* 10 MG TAB PO SCH (08:51)
[2019-08-03 09:05] VITALS: BP 115/56
--- NOTE | 2019-08-04 03:07 | DS ---
DISCHARGE SUMMARY: DATE OF ADMISSION: 07/31/19 DATE OF DISCHARGE: 08/03/19 PRIMARY CARE PROVIDER: Dr. Thompson. OTHER PROVIDER: Calderon Dyson DO ATTENDING PHYSICIAN: Selina Farah M.D.* (dictated by DOUGLAS Muñiz). PRIMARY DIAGNOSES: 1. Gastrointestinal bleed, likely diverticular. 2. Esophagitis. 3. Anemia related to blood loss from gastrointestinal bleeding. SECONDARY DIAGNOSES: 1. Diverticulosis noted on prior colonoscopy. 2. Hypothyroidism. 3. Gastroesophageal reflux disease. 4. Depression. 5. Anxiety. 6. History of sciatica, unresolved. 7. History of herniated L2-L3 with residual chronic back pain. CONSULTATIONS WHILE IN THE HOSPITAL: GI: Acute blood loss anemia. H and H q.6. IV pantoprazole drip. No risk factors for cirrhosis and octreotide not necessary. Consumed significant amount of ibuprofen and aspirin potentially placing her at risk for PUD. Discussed risks, benefits, alternatives, and will proceed with upper endoscopy. Hemodynamically stable; however, slightly tachycardic. BUN not elevated, but given tachycardia, suspect upper GI source is possibility. No source identified. We discussed doing flexible sigmoidoscopy to colonoscopy. Pending results. Unprepped. Discussed risks, benefits, and alternatives. She agreed to proceed. N.p.o. IV fluids. H and H q.6. Type and cross. Transfuse as needed for hemoglobin less than 7. PROCEDURES WHILE IN THE HOSPITAL: EGD, colonoscopy, impression: Complete EGD. LA- C erosive reflux. No fresh or old blood on upper exam. Complete colonoscopy to the terminal ileum. Poor prep, but descent visualization done after washing. Extensive old blood and clot. No fresh bleeding. Zuleta diverticulosis coli. No blood in terminal ileum, suspect this was a result diverticular bleed from right side. Continued to observe, expect clots and old blood to continue for next 12 to 24 hours. Full liquids today, b.i.d. PPI given erosive reflux. Will need a repeat EGD and colonoscopy in 3 months to evaluate esophagus for healing and make sure there are no polyps or lesions on colonoscopy given poor prep and old blood. Discharged her on high fiber diet after bleeding ceases. Avoid Motrin, ibuprofen, and Aleve. Metamucil daily. DISCHARGE MEDICATIONS: Home medications: 1. Famotidine 10 mg p.o. daily p.r.n. reflux. 2. Levothyroxine 25 mcg p.o. daily. 3. Claritin D 1 tab p.o. daily. New home medication: 1. Pantoprazole 40 mg p.o. b.i.d. x3 months. 2. Metamucil 3.4 g p.o. daily. HISTORY OF PRESENT ILLNESS/HOSPITAL COURSE: Ms. Grier is a 73-year-old female with a past medical history of diverticulosis, hypothyroidism, and GERD, who presents to the ER on 07/31/19 with complaints of bright red blood per rectum. For full and complete details, please see the history and physical dictated by DOUGLAS Herzog, but in short, the patient presents with these symptoms. She was admitted to the hospital. She was started on Protonix drip. Gastroenterology was consulted and recommended n.p.o. and H and H q.6 hours. The following day, the patient received a colonoscopy and EGD. She was found to have erosive esophagitis, for which she was prescribed pantoprazole 40 b.i.d. x3 months. Colonoscopy was also performed and revealed blood clots. The patient did not receive colonoscopy prep, but there was noted diverticulosis in the colon. Due to these findings, it was suspected that the patient's bright red blood per rectum was diverticular in nature. At the time of discharge, her H and H is stable. She has no symptoms of anemia and denies dizziness, lightheadedness, shortness of breath, although she does report that she feels mildly weak. Her epigastric pain has improved. She reports, "very little pain." She denies bloating, nausea or vomiting. She had a bowel movement today and denies melena or hematochezia. She was instructed to inspect each bowel movement for signs and symptoms of bleeding, which were discussed prior to discharge. She has no other complaints today. She will follow up with Gastroenterology in approximately 3 months for repeat EGD and colonoscopy. REVIEW OF SYSTEMS: A 14-point review of systems has been performed and all the pertinent positives and negatives are in the HPI. All other systems are negative. PHYSICAL EXAMINATION: General: Ms. Grier is a well-developed, well-nourished , obese, older [place] woman, who is sitting up in her chair with lower extremities at the floor. She is pleasant and cooperative. She appears to be in no acute distress. HEENT: PERRL. EOMI. Nonicteric sclerae. Hearing grossly intact. Oral mucous membranes are moist. There are no lesions. Her pharynx is clear. Tongue is at midline. Cardiovascular: Regular rate and rhythm with S1 and S2 present without murmur, rubs, clicks or gallops. There is no JVD. There is no peripheral edema. Pulmonary: Symmetrical chest expansion without use of accessory muscles. Lungs are clear to auscultation bilaterally without rhonchi, wheezes or rubs. Abdomen: Obese. Bowel sounds in all quadrants. Soft, nontender to palpation throughout. Musculoskeletal: Full range of motion without pain or deformities. Neuro: The patient is awake. She is alert and oriented x3 with cranial nerves grossly intact. She is able to move all of her extremities with 5/5 muscles strength bilaterally in the upper and lower extremities. Steady gait without impairment. Vital Signs: Temperature 97.8 temporal, heart rate 70, respiratory rate 16, oxygen saturation 98% on room air, blood pressure 136/56. DISCHARGE PLAN: Ms. Grier will be discharged to home. CONDITION: Good. DIET: High-fiber diet. ACTIVITY: Return to regular activity as tolerated. MEDICATIONS: 1. Metamucil daily. 2. Pantoprazole twice daily for 3 months. 3. Avoid ibuprofen, naproxen, Motrin, and aspirin. For pain relief, please use Tylenol. EDUCATION: 1. Follow up with primary care provider in 4 to 7 days. 2. Follow up with Gastroenterology, Dr. Dyson. Will need repeat EGD and repeat colonoscopy in 3 months. 3. Return to the ER or nearest hospital if you experience any worsening symptoms or worsening or increase in bloody stools or dark tarry stools, chest pain or discomfort, shortness of breath, dizziness, lightheadedness, loss of consciousness, high fevers, chills, night sweats or any other worrisome signs or symptoms. This is a summarized report of a complex medical history and hospital stay. For further details, please see the entire medical record. TIME SPENT: Approximately, 35 minutes was spent on this discharge, greater than half that time was spent [id number] with the patient discussing discharge plans and instructions. AURORA MAYFIELD, DOUGLAS [id number]/[facility] #: [id number] [facility]ALLobo
== END 2019-08-03 14:00 | disposition home or self-care (01) | DRG 378 ==
LOC: ED 13:27 → MED 17:20
PROVIDERS: ADMIT Internal Medicine; ATTEND Internal Medicine
PROC: 0DJ08ZZ Inspection of Upper Intestinal Tract, Via Natural or Artificial Opening Endoscopic (ICD-10-PCS; principal; 2019-07-31)
PROC: 0DJD8ZZ Inspection of Lower Intestinal Tract, Via Natural or Artificial Opening Endoscopic (ICD-10-PCS; 2019-07-31)
DX: K57.31 Diverticulosis of large intestine without perforation or abscess with bleeding (principal); D62 Acute posthemorrhagic anemia; K20.9 Esophagitis, unspecified; E03.9 Hypothyroidism, unspecified; K21.9 Gastro-esophageal reflux disease without esophagitis; F32.9 Major depressive disorder, single episode, unspecified; F41.9 Anxiety disorder, unspecified; G89.29 Other chronic pain; I10 Essential (primary) hypertension; E66.9 Obesity, unspecified; Z79.82 Long term (current) use of aspirin; Z79.1 Long term (current) use of non-steroidal anti-inflammatories (NSAID); Z79.899 Other long term (current) drug therapy; Z83.3 Family history of diabetes mellitus; Z68.33 Body mass index [BMI] 33.0-33.9, adult
CPT/HCPCS: 36415; 80048; 80053; 82330; 82728; 83540; 83550; 83605; 84484; 85014; 85018; 85025; 85610; 85730; 86850; 86900; 86901; 87040; 90686; 93005; 96361; 96374; 99156; 99157; 99285; A9270-GY; J1200; J2250; J3010